=== PATIENT | male | born 1975 | race Caucasian/White ===

== ENCOUNTER → 2016-05-23 | Outpatient (CLI) | payer BC | END | disposition disaster alternative care site (69) | LOC: GRAD 18:53 | DX: R06.00 Dyspnea, unspecified (principal); I25.10 Atherosclerotic heart disease of native coronary artery without angina pectoris | CPT/HCPCS: Q9967 ==

== ENCOUNTER → 2016-07-25 | Outpatient (CLI) | payer BC ==
--- NOTE | ~2016-07-25 | PUL ---
[facility] 41 [facility] [address] ROOM: [place] [address] LOCATION: [facility] ADMIT DATE: 07/25/2016 Pulmonary DISCHARGE DATE: FAMILY PHYSICIAN: CHRISTOPHER WHITE MD ATTENDING PHYSICIAN: CHRISTOPHER WHITE NAME OF PROCEDURE: Sleep Study PROCEDURE DATE: 07/25/16 TECH: DELL Damon TEST #: [facility] [place]# [id number] TECHNICAL PARAMETERS: The patient was studied using International 10/20 measuring system. While the patient was studied, there was continuous monitoring of EEG (8 leads), EOG (2 leads), EKG (3 leads), submental EMG (3 leads), tibial (4 leads), respiratory inductive plethysmography (RIP) for thoracic and abdominal effort, oral and nasal airflow with a thermocouple and pressure transducer, and oximetry. The mathematical engineering technician also performed visual and auditory observations noting things like body position, patient's status, breath sounds, artifact, snoring level and patient comments. Continuous sound was monitored using a 2-way speaker system and video monitoring was performed using an infrared camera. Review of the entire study was performed epoch by epoch utilizing a single epoch and multiple epoch capability sleep system. MEDICAL HISTORY: Patient is a 41-year-old overweight man with daytime sleepiness and snoring. SLEEP STAGE SUMMARY: The patient was studied for 484 minutes of which he slept 332 minutes. He fell asleep in 6 minutes and slept for 69% of the night. Sleep architecture revealed a decline in slow wave sleep. RESPIRATORY SUMMARY: Oxygen saturations ranged from 78-94%. Prior to initiating CPAP there were 10 apneas and 182 hypopneas. CPAP was initiated and titrated. The best level of control occurred with CPAP at 12 cm. EKG SUMMARY: No dysrhythmias were noted. LIMB MOVEMENT SUMMARY: No clinically relevant periodic limb movements were noted. SUMMARY: Obstructive sleep apnea. Suggest CPAP at 12 cm. PLAN: Patient will receive results from the ordering provider. [facility] 41 Y [address] ROOM: [place] [address] LOCATION: [facility] ADMIT DATE: 07/25/2016 Pulmonary DISCHARGE DATE: FAMILY PHYSICIAN: CHRISTOPHER WHITE MD ATTENDING PHYSICIAN: CHRISTOPHER WHITE MD MICHAEL ROONEY/ /[id number] dtt: 08/07/16 0827 , Sean Stover dtd: 07/30/16 1605
== END | disposition disaster alternative care site (69) ==
LOC: GSLP 20:33
DX: G47.10 Hypersomnia, unspecified (principal); G47.33 Obstructive sleep apnea (adult) (pediatric); R09.02 Hypoxemia